=== PATIENT | male | born 2005 | race Caucasian/White ===

== ENCOUNTER 2025-05-04 20:17 | Emergency (ER) | payer OTHER, MEDICAID, SELFPAY ==
[2025-05-04 20:19] VITALS: BP 143/101; PULSE 69; RESP 18; TEMP 36.6; O2SAT 100; BMI 25.5
--- NOTE | 2025-05-04 20:38 | ED.VIS.LOWEX ---
HPI History of Present Illness Chief Complaint: Lower Extremity Injury Narrative Narrative: 19-year-old male who denies significant past medical history although he has had prior right knee surgery presents with crush injury to his right lower leg that he sustained just prior to arrival. He states that he was at work, and they move large, heavy pieces of metal. He had a bunch of pieces strapped together, and noticed that as a snowden was going up that [address] was [address] secured the same way. He had the crate lowered and as he was trying to fix the strapping, he states he stepped down into other pieces of metal. Another large piece of metal was unsecured and fell, crushing more his lateral aspect of his right leg on the lower portion between another piece of metal. He denies being pinned in there for an extended period of time. He pulled his leg out quite rapidly. He denies hitting his head or loss of consciousness, he sustained abrasions to his right lower extremity mainly on the lateral and medial aspects. He complains of burning pain in that area. No ankle or foot pain, no knee pain. He does have pain with movement of his toes in the area that was crushed however. [facility] Medical History Hx of tear of meniscus of knee joint Home Medications ?Medication ?Instructions ?Recorded ?Last Taken ?Type NK 05/04/25 Unknown History Allergy/AdvReac Type Severity Reaction Status Date / Time No Known Allergies Allergy Verified 05/04/25 20:18 Family History no significant family his Social History Smoking Status: Never smoker ROS ROS ED ROS Narrative Review of systems is positive for question injury to her right lower leg proximal to the ankle. Abrasions to right lower leg. Tetanus immunization current. Denies hitting his head, loss of consciousness, or other injury. EXAM Physical Exam Narrative Exam Narrative: GCS 15. ABCs are intact. Cardiovascular examination reveals a regular rate and rhythm. Lungs clear to auscultation bilaterally. Abdomen soft and nontender. Focused examination of the right lower extremity does show mild tenderness to palpation more in the mid to distal tibial shaft. No malleoli or tenderness laterally or medially. Palpable dorsalis pedis pulse, right. Good capillary refill of toes. Flexion and extension of right knee intact. No crepitance or active bleeding. Const Vital Signs: 05/04/25 20:19 05/04/25 21:36 Temperature 98 F 98 F Temperature Source Oral Pulse Rate 69 72 Respiratory Rate 18 18 Blood Pressure 143/101 H 146/89 H Blood Pressure Mean 115 108 Pulse Ox 100 99 Oxygen Delivery Method Room Air MDM MDM MDM Narrative Medical decision making narrative: Differential diagnosis includes but not limited to crush injury/contusion of right lower extremity versus tibial shaft fracture versus fibular fracture versus contusion. Patient has already received 50 mcg of fentanyl per EMS. X-rays were obtained of the right tibia and fibula in 2 views and interpreted by myself independently. I see no evidence of acute fracture. I reviewed the radiology report which confirms my independent interpretation. At this point in time, I do feel he can be discharged to follow-up with in our clinic. He was given work instructions such as allow crutch use, no use of his right lower extremity, lateral elevation of his right leg in sitting for comfort, no climbing stairs as he needs crutches. These will be in effect until cleared by the [facility] or [facility] provider of his choice. I feel he can take [id number] medications as needed. Return instructions to the emergency department reviewed. Disposition is discharged home in stable condition. History & Record Review Discussion w/independent historian: Patient Radiography Diagnostic Testing: Clinical Impression(s) from Imaging Studies Tibia/Fibula X-Ray 05/04/25 20:44 IMPRESSION: No acute fracture or dislocation. Reading Location: [id number] Discharge Plan Triage Chief Complaint: Lower Extremity Injury ED Provider: Alden Ross Dx/Rx/DC Orders Clinical Impression: Crush injury, lower leg, Contusion of right lower leg, Abrasion of lower leg Instructions: ED Abrasion, ED Contusion, Lower Extremity Prescriptions: No Action NK Primary Care Provider: Murray Nova Referrals: [facility] [Provider Group] - 3-5 Days Activity Restrictions/Additional Instructions: Wear Dayday wrap for support. May remove for bathing and/or sleeping. Use crutches to help you walk. Follow-up with the [facility]. Return to work tomorrow with limitations listed on a work status form. Ibuprofen and/or Tylenol as needed for pain. Print Language: Gambian Disposition Disposition: Home, Self Care Discharge Date/Time: 05/04/25 21:46
--- NOTE | 2025-05-04 20:44 | RAD_ITS ---
PROCEDURE: RAD/Tibia & Fibula 2 Views
[2025-05-04 21:36] VITALS: BP 146/89; PULSE 72; RESP 18; TEMP 36.6; O2SAT 99
== END 2025-05-04 21:46 | disposition home or self-care (01) ==
LOC: ED 21:28
PROVIDERS: Emergency Provider Emergency Medicine; Visit Provider Emergency Medicine
DX: S80.11XA Contusion of right lower leg, initial encounter (principal); W23.2XXA Caught, crushed, jammed or pinched between a moving and stationary object, initial encounter; Y93.89 Activity, other specified; Y99.0 Civilian activity done for income or pay; Y92.89 Other specified places as the place of occurrence of the external cause; S80.811A Abrasion, right lower leg, initial encounter
CPT/HCPCS: 73590; 99285